=== PATIENT | female | born 1990 | race African-American/Black ===

== ENCOUNTER 2018-08-01 16:53 | Emergency (ER) | payer MEDICAID, OTHER ==
[~2018-08-01] VITALS: Ht 165.1 cm; Wt 70.8 kg
[2018-08-01 17:39] LABS: CLARITY URINE CLEAR (CLEAR); COLOR URINE YELLOW (YELLOW); KETONES URINE NEGATIVE (NEGATIVE); LEUKOCYTE ESTERASE URINE NEGATIVE (NEGATIVE); NITRITE URINE NEGATIVE (NEGATIVE); OCCULT BLOOD URINE 1+ (NEGATIVE); PH URINE 6.5 (4.5-8.0); PROTEIN URINE NEGATIVE (NEGATIVE); SPECIFIC GRAVITY URINE 1.019 (1.005-1.030); UROBILINOGEN URINE 0.2 E.U./dL (0.2-1.0)
[2018-08-01 18:30] VITALS: BP 140/89
[2018-08-01] MEDS ORDERED: IBUPROFEN 600MG TABLET PO ONE (18:30)
== END 2018-08-01 19:00 | disposition home or self-care (01) ==
LOC: ER 16:53
DX: M54.9 Dorsalgia, unspecified (principal); M79.18 Myalgia, other site; F41.9 Anxiety disorder, unspecified; Z98.890 Other specified postprocedural states
CPT/HCPCS: 81025; 99283